=== PATIENT | female | born 2000 | race Caucasian/White ===

== ENCOUNTER 2021-12-04 16:12 | Emergency (ER) | payer MEDICAID ==
[~2021-12-04] VITALS: Ht 152.4 cm; Wt 63.6 kg
[~2021-12-04 16:12] MED LIST: HYDR-4383 PO
[2021-12-04 16:17] VITALS: BP 124/74
[2021-12-04] MEDS ORDERED: acetaminophen 325mg tablet PO ONE (17:40)
== END 2021-12-04 18:28 | disposition home or self-care (01) ==
LOC: ER 16:13
DX: S50.312D Abrasion of left elbow, subsequent encounter (principal); S50.311D Abrasion of right elbow, subsequent encounter; M79.18 Myalgia, other site; Z72.89 Other problems related to lifestyle; Z79.899 Other long term (current) drug therapy; V99.XXXD Unspecified transport accident, subsequent encounter
CPT/HCPCS: 73130; 99283

== ENCOUNTER 2021-12-17 16:20 | Emergency (ER) | payer MEDICAID ==
[~2021-12-17] VITALS: Ht 152.4 cm; Wt 65.9 kg
[2021-12-17 16:28] VITALS: BP 105/61
== END 2021-12-17 17:24 | disposition home or self-care (01) ==
LOC: ER 16:20
DX: R07.89 Other chest pain (principal); Z72.89 Other problems related to lifestyle; Z79.899 Other long term (current) drug therapy
CPT/HCPCS: 71045; 99283

== ENCOUNTER 2022-04-02 14:01 | Emergency (ER) | payer SELFPAY ==
[~2022-04-02] VITALS: Ht 152.4 cm; Wt 63.6 kg
[2022-04-02 15:25] LABS: URINE HCG POSITIVE (NEG)
[2022-04-02 15:37] LABS: CLARITY,URINE SLIGHTLY CLOUDY (Clear); GLUCOSE, URINE NEGATIVE (Neg); KETONES,URINE NEGATIVE (Neg); LEUKOCYTE ESTERASE ,URINE LARGE (Neg); NITRITES, URINE NEGATIVE (Neg); OCCULT BLOOD,URINE NEGATIVE (Neg); PROTEIN,URINE NEGATIVE (Neg); UROBILINOGEN,URINE 0.2 E.U/dL (0.2-1.0)
[2022-04-02 15:38] LABS: COLOR,URINE STRAW (Yellow); UA COLLECTION TYPE CLN CATCH MIDSTREAM
[2022-04-02 15:45] LABS: SQUAMOUS EPITHELIAL CELL,UR MODERATE /LPF (FEW); WBC,URINE TNTC /HPF (0-4)
[2022-04-02 15:46] LABS: RBC,URINE 20-50 /HPF (0-2)
[2022-04-02 15:47] LABS: BACTERIA,URINE 2+ /HPF (Neg); FINE GRANULAR CAST 0-3 /LPF (NEGATIVE)
[2022-04-02 16:08] LABS: BASOPHILS % (AUTO) 0.3 % (0-1); EOSINOPHILS % (AUTO) 0.4 % (0-6); HEMOGLOBIN 12.8 g/dl (12.0-16.0); LYMPHOCYTES # (AUTO) 1.8 X10'3 (1.1-4.8); LYMPHOCYTES % (AUTO) 15.5 % (21-51); MEAN CORPUSCULAR HEMOGLOBIN 32.3 PG (27.0-31.0); MEAN CORPUSCULAR HGB CONC 33.8 g/dL (33.0-36.5); MEAN CORPUSCULAR VOLUME 95.8 FL (78-98); MEAN PLATELET VOLUME 6.8 FL (7.4-10.4); MONOCYTES # (AUTO) 0.7 X10'3 (0-0.9); MONOCYTES % (AUTO) 5.7 % (2-12); NEUTROPHILS # (AUTO) 9.1 X10'3 (1.8-7.7); NEUTROPHILS % (AUTO) 78.1 % (42-75); PLATELET COUNT 425 X10'3 (140-440); RED BLOOD COUNT 3.97 X10'6 (4.20-5.60); RED CELL DISTRIBUTION WIDTH 14.9 % (11.5-14.5); WHITE BLOOD COUNT 11.7 X10'3 (4.5-11.0)
[2022-04-02 16:21] LABS: ALANINE AMINOTRANSFERASE 21 U/L (12-78); ALBUMIN 3.8 G/DL (3.4-5.0); ALKALINE PHOSPHATASE 75 IU/L (46-116); ANION GAP 9 (8-16); ASPARTATE AMINO TRANSFERASE 12 U/L (10-37); BILIRUBIN,TOTAL 0.2 MG/DL (0.1-1.0); BLOOD UREA NITROGEN 12 MG/DL (7-18); BUN/CREATININE RATIO 13.2 (6.6-38.0); CALCIUM 8.9 MG/DL (8.5-10.1); CHLORIDE 107 MMOL/L (99-107); CREATININE 0.91 MG/DL (0.40-0.90); GLUCOSE 75 MG/DL (70-104); POTASSIUM 3.9 MMOL/L (3.5-5.1); SODIUM 142 MMOL/L (135-145); TOTAL CARBON DIOXIDE 25.6 MMOL/L (24-32); TOTAL PROTEIN 7.7 G/DL (6.4-8.2); eGFR 78 ML/MIN
[2022-04-02 16:32] VITALS: BP 161/76
[2022-04-02] MEDS ORDERED: PNV1TABL55 PO (16:37)
[2022-04-02] MEDS ORDERED: CEPH250T PO (16:37)
== END 2022-04-02 17:36 | disposition home or self-care (01) ==
LOC: ER 14:01
DX: O00.01 Abdominal pregnancy with intrauterine pregnancy (principal); N39.0 Urinary tract infection, site not specified; Z3A.01 Less than 8 weeks gestation of pregnancy
CPT/HCPCS: 36415; 76817; 80053; 81001; 81025; 85025; 86885; 86900; 86901; 87077; 87088; 87186; 99284

== ENCOUNTER → 2022-08-16 | Emergency (ER) | payer MEDICAID ==
[~2022-08-16] VITALS: Ht 152.4 cm; Wt 66.8 kg
[~2022-08-16] MED LIST changes: +CEPH250T PO; +PNV1TABL55 PO; +cephalexin 250mg capsule PO ONE
[2022-08-16 14:15] VITALS: BP 121/74
[2022-08-16 15:14] LABS: URINE HCG POSITIVE (NEG)
[2022-08-16 15:15] LABS: CLARITY,URINE CLOUDY (Clear); COLOR,URINE YELLOW (Yellow); GLUCOSE, URINE NEGATIVE (Neg); KETONES,URINE TRACE mg/dl (Neg); LEUKOCYTE ESTERASE ,URINE SMALL (Neg); NITRITES, URINE NEGATIVE (Neg); OCCULT BLOOD,URINE LARGE (Neg); PH,URINE 7.5 (4.8-8.0); PROTEIN,URINE NEGATIVE (Neg); UROBILINOGEN,URINE 0.2 E.U/dL (0.2-1.0)
[2022-08-16 15:16] LABS: UA COLLECTION TYPE CLN CATCH MIDSTREAM
[2022-08-16 15:23] LABS: WBC,URINE 0-4 /HPF (0-4)
[2022-08-16 15:24] LABS: BACTERIA,URINE 3+ /HPF (Neg); RBC,URINE 0-2 /HPF (0-2); SQUAMOUS EPITHELIAL CELL,UR MANY /LPF (FEW)
[2022-08-16 17:28] LABS: BASOPHILS % (AUTO) 0.5 % (0-1); EOSINOPHILS % (AUTO) 0.3 % (0-6); HEMATOCRIT 39.7 % (35.0-45.0); HEMOGLOBIN 13.5 g/dl (12.0-16.0); LYMPHOCYTES # (AUTO) 2.5 X10'3 (1.1-4.8); MEAN CORPUSCULAR HEMOGLOBIN 31.9 PG (27.0-31.0); MEAN CORPUSCULAR HGB CONC 34.1 g/dL (33.0-36.5); MEAN CORPUSCULAR VOLUME 93.8 FL (78-98); MONOCYTES # (AUTO) 0.4 X10'3 (0-0.9); MONOCYTES % (AUTO) 4.1 % (2-12); NEUTROPHILS # (AUTO) 6.9 X10'3 (1.8-7.7); NEUTROPHILS % (AUTO) 70.1 % (42-75); PLATELET COUNT 389 X10'3 (140-440); RED BLOOD COUNT 4.23 X10'6 (4.20-5.60); RED CELL DISTRIBUTION WIDTH 13.6 % (11.5-14.5); WHITE BLOOD COUNT 9.8 X10'3 (4.5-11.0)
== END | disposition home or self-care (01) ==
LOC: ER 13:58
DX: O23.41 Unspecified infection of urinary tract in pregnancy, first trimester (principal); Z3A.01 Less than 8 weeks gestation of pregnancy
CPT/HCPCS: 36415; 76801; 81001; 81025; 84702; 85025; 99284

== ENCOUNTER 2023-01-18 21:41 | Emergency (ER) | payer MEDICAID ==
[~2023-01-18] VITALS: Ht 152.4 cm; Wt 75.0 kg
[~2023-01-18 21:41] MED LIST changes: -CEPH250T PO; -cephalexin 250mg capsule PO ONE
[2023-01-18 22:05] VITALS: BP 109/61
== END 2023-01-19 01:02 | disposition left against medical advice (07) ==
LOC: ER 21:42
DX: R10.2 Pelvic and perineal pain (principal); Z53.21 Procedure and treatment not carried out due to patient leaving prior to being seen by health care provider
CPT/HCPCS: 99281

== ENCOUNTER 2023-04-16 19:20 | Emergency (ER) | payer BC, MEDICAID ==
[~2023-04-16] VITALS: Ht 152.4 cm; Wt 68.2 kg
[2023-04-16 19:20] VITALS: BP 112/66; PULSE 101; RESP 16; TEMP 97.4; O2SAT 98
[2023-04-16] MEDS ORDERED: METR-159 PO (20:54)
[2023-04-16] MEDS ORDERED: metroNIDAZOLE 500mg tablet PO ONE (20:55)
== END 2023-04-16 21:12 | disposition home or self-care (01) ==
LOC: ER 19:20
DX: O86.13 Vaginitis following delivery (principal); B96.89 Other specified bacterial agents as the cause of diseases classified elsewhere; Z79.899 Other long term (current) drug therapy
CPT/HCPCS: 99283